=== PATIENT | female | born 1940 | race Two or more races ===

== ENCOUNTER 2020-12-27 10:34 | Outpatient (CLI) | payer MEDICARE, MEDICAID ==
[2020-12-27] MEDS ORDERED: SUVO10TA PO (11:32)
[2020-12-27] MEDS ORDERED: MULT-449 PO (11:32)
[2020-12-27] MEDS ORDERED: METF850T10 PO (11:32)
[2020-12-27] MEDS ORDERED: LISI-170 PO (11:32)
[2020-12-27 11:53] LABS: BASOPHILS % (AUTO) 1 % (0-1); EOSINOPHILS % (AUTO) 4 % (1-7); LYMPHOCYTES % (AUTO) 18 % (22-44); MEAN CORPUSCULAR HEMOGLOBIN 30.2 pg (27.0-34.8); MEAN CORPUSCULAR HGB CONC 34.5 g/dL (32.4-35.8); MEAN PLATELET VOLUME 7.3 fL (7.4-10.4); MONOCYTES % (AUTO) 9 % (2-9); NEUTROPHILS % (AUTO) 69 % (42-75); PLATELET COUNT 294 x10^3/uL (130-400); RED BLOOD COUNT 4.04 x10^6/uL (3.82-5.3)
[2020-12-27 12:02] LABS: ALBUMIN 4.2 g/dL (3.4-5.0); ANION GAP 8 mmol/L (5-15); CALCIUM 9.2 mg/dL (8.5-10.1); CHLORIDE 95 mmol/L (98-107)
[2020-12-27 12:03] LABS: INTERNATIONAL NORMALIZED RATIO 1.04 (0.93-1.1); PROTHROMBIN TIME 11.1 Seconds (9.6-11.5)
[2020-12-27 12:07] LABS: ALANINE AMINOTRANSFERASE 20 U/L (12-78); ALKALINE PHOSPHATASE 68 U/L (45-117); BILIRUBIN,TOTAL 0.3 mg/dL (0.2-1.0); CREATININE 0.73 mg/dL (0.55-1.02)
[2021-01-30] MEDS ORDERED: OXYC1TAB14 PO (22:43)
[2021-01-30] MEDS ORDERED: GABA600T7 PO (22:53)
== END 2020-12-27 23:59 | disposition home or self-care (01) ==
LOC: STAR 10:34 → MERGE 10:34 → STAR 23:59
PROVIDERS: ATTEND Orthopaedic Surgery
DX: Z01.818 Encounter for other preprocedural examination (principal); R94.31 Abnormal electrocardiogram [ECG] [EKG]
CPT/HCPCS: 36415; 80053; 85025; 85610; 85730; 93005

== ENCOUNTER 2021-01-05 09:14 | Day surgery (SDC) | payer MEDICARE, MEDICAID ==
[2021-01-02 12:37] LABS: ANION GAP 9 mmol/L (5-15); CALCIUM 9.5 mg/dL (8.5-10.1); CHLORIDE 95 mmol/L (98-107); CREATININE 0.67 mg/dL (0.55-1.02)
[~2021-01-05] VITALS: Ht 149.9 cm; Wt 54.3 kg
[~2021-01-05 09:14] MED LIST: LISI-170 PO; METF850T10 PO; MULT-449 PO; SUVO10TA PO
[2021-01-05 09:54] VITALS: BP 193/74
[2021-01-05] MEDS ORDERED: LACTATED RINGERS 1,000 ML IV SCH (10:00)
[2021-01-05] MEDS ORDERED: CHLORHEXIDINE 15 ML UDC PO ONE (10:00)
[2021-01-05 10:40] LABS: ANION GAP 9 mmol/L (5-15); CHLORIDE 99 mmol/L (98-107); CREATININE 0.74 mg/dL (0.55-1.02)
[2021-01-05] MEDS ORDERED: PROPOFOL 10 MG/ML, 20ML ONE (13:58)
[2021-01-05] MEDS ORDERED: ROCURONIUM 10 MG/ML,10ML ONE (13:58)
[2021-01-05] MEDS ORDERED: DEXAMETHASONE 4 MG/ML, 1ML ONE (13:58)
[2021-01-05] MEDS ORDERED: CEFAZOLIN 1,000 MG ONE (13:58)
[2021-01-05] MEDS ORDERED: NEOSTIGMINE 1 MG/ML, 10ML ONE (13:58)
[2021-01-05] MEDS ORDERED: METOPROLOL 1 MG/ML, 5ML ONE (13:58)
[2021-01-05] MEDS ORDERED: ONDANSETRON 2MG/ML, 2ML ONE (13:58)
[2021-01-05] MEDS ORDERED: GLYCOPYRROLATE 0.2MG/1ML, 5ML ONE (13:58)
[2021-01-05] MEDS ORDERED: FENTANYL PF 250 MCG/5ML ONE (13:58)
[2021-01-05] MEDS ORDERED: LIDOCAINE 1%, 20ML INFIL ONE (14:32)
[2021-01-05] MEDS ORDERED: BUPIVACAINE/PF 0.5% INFIL ONE (14:33)
[2021-01-05] MEDS ORDERED: PROMETHAZINE 25 MG/ML, 1ML IV PRN (15:00)
[2021-01-05] MEDS ORDERED: OXYcodone 5 MG/5 ML ORAL.SOL UDC PO PRN (15:00)
[2021-01-05] MEDS ORDERED: ACETAMINOPHEN 325 MG TABLET PO PRN (15:00)
[2021-01-05] MEDS ORDERED: KETOROLAC 30 MG/1 ML IV PRN (15:00)
[2021-01-05] MEDS ORDERED: DIAZEPAM 5 MG/ML, 2ML IVPush PRN (15:00)
[2021-01-05] MEDS ORDERED: MEPERIDINE/PF 25MG/0.5ML IVPush PRN (15:00)
[2021-01-05] MEDS ORDERED: ALBUTEROL SULFATE 2.5 MG/3 ML NPPB PRN (15:00)
[2021-01-05] MEDS ORDERED: HYDROmorphone 2 MG/ML, 1ML IVPush PRN (15:00)
[2021-01-05] MEDS ORDERED: hydrALAzine 20 MG/ML, 1ML IV PRN (15:00)
[2021-01-05] MEDS ORDERED: LABETALOL 5MG/ML, 20ML IV PRN (15:00)
[2021-01-05] MEDS: FENTANYL PF 100 MCG/2ML IV PRN ×2 (15:38→15:43)
[2021-01-30] MEDS ORDERED: OXYC1TAB14 PO (22:43)
[2021-01-30] MEDS ORDERED: GABA600T7 PO (22:53)
== END 2021-01-05 18:00 | disposition home or self-care (01) ==
LOC: OUT 09:14 → MERGE 14:00 → OUT 18:00
PROVIDERS: ATTEND Surgery
DX: C43.72 Malignant melanoma of left lower limb, including hip (principal); C77.4 Secondary and unspecified malignant neoplasm of inguinal and lower limb lymph nodes; L97.429 Non-pressure chronic ulcer of left heel and midfoot with unspecified severity; E11.9 Type 2 diabetes mellitus without complications; I10 Essential (primary) hypertension; Z20.822 Contact with and (suspected) exposure to COVID-19; Z79.84 Long term (current) use of oral hypoglycemic drugs; Z79.899 Other long term (current) drug therapy; Z90.49 Acquired absence of other specified parts of digestive tract
CPT/HCPCS: 11626; 15275; 36415; 38531; 78195; 80048; 82962; 88307; A9541; C5275; J0171; J0330; J0690; J1100; J2405; J2704; J2710; J3010; J7120; Q4100; U0003; U0005

== ENCOUNTER 2021-02-09 14:02 | Outpatient (CLI) | payer MEDICARE, MEDICAID ==
[~2021-02-09 14:02] MED LIST changes: +CEPH500T PO; +DOXY100T PO; +GABA600T7 PO; +ONDA4TAB7 PO; +OXYC1TAB12 PO
[2021-04-04] MEDS ORDERED: TRAM50TA2 PO (12:42)
[2021-04-04] MEDS ORDERED: OMEP-110 PO (12:42)
== END 2021-02-09 23:59 | disposition home or self-care (01) ==
LOC: WOUND 14:02
PROVIDERS: ATTEND Internal Medicine
DX: T81.89XA Other complications of procedures, not elsewhere classified, initial encounter (principal); E11.621 Type 2 diabetes mellitus with foot ulcer; L97.521 Non-pressure chronic ulcer of other part of left foot limited to breakdown of skin; L03.116 Cellulitis of left lower limb; I10 Essential (primary) hypertension; Z85.820 Personal history of malignant melanoma of skin; Z90.49 Acquired absence of other specified parts of digestive tract; Z20.822 Contact with and (suspected) exposure to COVID-19; Z79.84 Long term (current) use of oral hypoglycemic drugs; Z79.899 Other long term (current) drug therapy; Y83.8 Other surgical procedures as the cause of abnormal reaction of the patient, or of later complication, without mention of misadventure at the time of the procedure; Y92.238 Other place in hospital as the place of occurrence of the external cause
CPT/HCPCS: 15275; 15276; G0463; Q4133

== ENCOUNTER 2021-02-16 10:49 | Outpatient (CLI) | payer MEDICARE, MEDICAID ==
[2021-04-04] MEDS ORDERED: OMEP-110 PO (12:42)
[2021-04-04] MEDS ORDERED: TRAM50TA2 PO (12:42)
== END 2021-02-16 23:59 | disposition home or self-care (01) ==
LOC: WOUND 10:49
PROVIDERS: ATTEND Internal Medicine
DX: T81.89XD Other complications of procedures, not elsewhere classified, subsequent encounter (principal); E11.621 Type 2 diabetes mellitus with foot ulcer; L97.522 Non-pressure chronic ulcer of other part of left foot with fat layer exposed; L97.422 Non-pressure chronic ulcer of left heel and midfoot with fat layer exposed; I10 Essential (primary) hypertension; Z85.820 Personal history of malignant melanoma of skin; Z90.49 Acquired absence of other specified parts of digestive tract; Z20.822 Contact with and (suspected) exposure to COVID-19; Z79.84 Long term (current) use of oral hypoglycemic drugs; Z79.899 Other long term (current) drug therapy; Y83.8 Other surgical procedures as the cause of abnormal reaction of the patient, or of later complication, without mention of misadventure at the time of the procedure
CPT/HCPCS: 15275; 15276; Q4133

== ENCOUNTER → 2021-02-23 | Outpatient (CLI) | payer MEDICARE, MEDICAID ==
[~2021-02-23] MED LIST changes: -OXYC1TAB12 PO; +OXYC1TAB14 PO
== END | disposition home or self-care (01) ==
LOC: WOUND 09:17
PROVIDERS: ATTEND Internal Medicine
DX: T81.89XD Other complications of procedures, not elsewhere classified, subsequent encounter (principal); L03.116 Cellulitis of left lower limb; E11.628 Type 2 diabetes mellitus with other skin complications; I10 Essential (primary) hypertension; Z85.820 Personal history of malignant melanoma of skin; Z90.49 Acquired absence of other specified parts of digestive tract; Z20.822 Contact with and (suspected) exposure to COVID-19; Z79.84 Long term (current) use of oral hypoglycemic drugs; Z79.899 Other long term (current) drug therapy; Y83.8 Other surgical procedures as the cause of abnormal reaction of the patient, or of later complication, without mention of misadventure at the time of the procedure
CPT/HCPCS: 15275; 15276; Q4133

== ENCOUNTER 2021-03-02 08:06 | Outpatient (CLI) | payer MEDICARE, MEDICAID ==
[~2021-03-02 08:06] MED LIST changes: +OXYC1TAB12 PO; -OXYC1TAB14 PO
[2021-04-04] MEDS ORDERED: OMEP-110 PO (12:42)
[2021-04-04] MEDS ORDERED: TRAM50TA2 PO (12:42)
== END 2021-03-02 23:59 | disposition home or self-care (01) ==
LOC: WOUND 08:06
PROVIDERS: ATTEND Internal Medicine
DX: T81.89XD Other complications of procedures, not elsewhere classified, subsequent encounter (principal); E11.621 Type 2 diabetes mellitus with foot ulcer; L97.522 Non-pressure chronic ulcer of other part of left foot with fat layer exposed; L97.422 Non-pressure chronic ulcer of left heel and midfoot with fat layer exposed; I10 Essential (primary) hypertension; Z85.820 Personal history of malignant melanoma of skin; Z90.49 Acquired absence of other specified parts of digestive tract; Z20.822 Contact with and (suspected) exposure to COVID-19; Z85.828 Personal history of other malignant neoplasm of skin; Z79.84 Long term (current) use of oral hypoglycemic drugs; Z79.899 Other long term (current) drug therapy; Y83.8 Other surgical procedures as the cause of abnormal reaction of the patient, or of later complication, without mention of misadventure at the time of the procedure
CPT/HCPCS: 15275; 15276; Q4133

== ENCOUNTER 2021-03-07 17:19 | Inpatient (IN) | payer MEDICARE, MEDICAID ==
[~2021-03-07] VITALS: Ht 149.9 cm; Wt 58.8 kg
[~2021-03-07 17:19] MED LIST changes: -OXYC1TAB12 PO; +OXYC1TAB14 PO
--- NOTE | 2021-03-07 17:39 | NUR ---
PT brought in by family for chief complaint of left leg rash developed this am. 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
[2021-03-07] MEDS ORDERED: ACETAMINOPHEN 325 MG TABLET PO ONE (18:00)
[2021-03-07] MEDS ORDERED: VANCOMYCIN PER PHARMACY MC PRN (18:00)
[2021-03-07] MEDS ORDERED: SODIUM CHLORIDE FLUSH 10ML SYR IVF ONE (18:00)
[2021-03-07] MEDS ORDERED: CEFTRIAXONE 1,000 MG in DEXTROSE 5% 50 ML IVPB ONE (18:00)
[2021-03-07] MEDS ORDERED: SODIUM CHLORIDE 0.9% 1,000ML IVBOLUS ONE (18:00)
[2021-03-07 18:23] LABS: MEAN CORPUSCULAR HEMOGLOBIN 28.8 pg (27.0-34.8); MEAN PLATELET VOLUME 7.3 fL (7.4-10.4); PLATELET COUNT 380 x10^3/uL (130-400); RED BLOOD COUNT 3.42 x10^6/uL (3.82-5.3); RED CELL DISTRIBUTION WIDTH 14.6 % (9.6-15.2)
[2021-03-07] MEDS ORDERED: VANCOMYCIN 1,300 MG in SODIUM CHLORIDE 0.9% 250 ML IV ONE (18:30)
[2021-03-07 18:33] LABS: ANION GAP 11 mmol/L (5-15); CALCIUM 8.7 mg/dL (8.5-10.1); CHLORIDE 93 mmol/L (98-107); CREATININE 0.77 mg/dL (0.55-1.02)
[2021-03-07 18:34] LABS: ALANINE AMINOTRANSFERASE 27 U/L (12-78); ALBUMIN 3.4 g/dL (3.4-5.0)
[2021-03-07 18:36] LABS: ALKALINE PHOSPHATASE 61 U/L (45-117); BILIRUBIN,TOTAL 0.4 mg/dL (0.2-1.0); TOTAL PROTEIN 6.9 g/dL (6.4-8.2)
[2021-03-07] MEDS ORDERED: ACETAMINOPHEN 325 MG TABLET ONE (18:36)
--- NOTE | 2021-03-07 18:41 | NUR ---
pt medicated per emar. vss. evann.
[2021-03-07 18:45] LABS: MICROSCOPIC NOT IND
--- NOTE | 2021-03-07 18:54 | NUR ---
BEDSIDE REPORT RECEIVED FROM GAETANO LEYVA
[2021-03-07 19:11] LABS: BAND#(MANUAL) 0.26 x10^3/uL; BANDS%(MANUAL) 1 % (0-7); LYMPH#(MANUAL) 0.77 x10^3/uL (1-3.4); LYMPHS% (MANUAL) 3 % (22-44); MONOS#(MANUAL) 1.29 x10^3/uL (0.3-2.7); MONOS% (MANUAL) 5 % (2-9); SEG#(MANUAL) 23.39 x10^3/uL (1.8-6.8); SEGS% (MANUAL) 91 % (42-75)
[2021-03-07 19:12] LABS: <PLATELET ESTIMATE> ADEQUATE; <PLT MORPHOLOGY> NORMAL PLT MORPH; OVALOCYTES 1+; PMNS WITH VACUOLES 1+
[2021-03-07] MEDS: SODIUM CHLORIDE 0.9% 1,000 ML IV SCH ×2 (19:19→20:19)
[2021-03-07] MEDS ORDERED: morphine SULFATE 10 MG/ML, 1ML IVPush PRN (20:00)
[2021-03-07] MEDS ORDERED: ACETAMINOPHEN 325 MG TABLET PO PRN (20:00)
--- NOTE | 2021-03-07 20:26 | NUR ---
REPORT TO [facility] ALL QUESTIONS ADDRESSED PT READY FOR TRANSPORT TO ROOM AT THIS TIME.
[2021-03-07 20:49] VITALS: BP 124/72
[2021-03-07] MEDS: ENOXAPARIN 40 MG/0.4 ML SQ SCH (23:17)
[2021-03-07] MEDS: LACTATED RINGERS 1,000 ML IV SCH (23:17)
[2021-03-07] MEDS: KETOROLAC 30 MG/1 ML IV PRN (23:33)
[2021-03-08 00:42] VITALS: BP 148/70
[2021-03-08] MEDS: CEFAZOLIN 2,000 MG in SODIUM CHLORIDE 0.9% 50 ML IV SCH ×3 (06:20→21:56)
[2021-03-08 06:22] LABS: BASOPHILS % (AUTO) 1 % (0-1); EOSINOPHILS % (AUTO) 1 % (1-7); LYMPHOCYTES % (AUTO) 6 % (22-44); MEAN CORPUSCULAR HEMOGLOBIN 29.1 pg (27.0-34.8); MEAN CORPUSCULAR HGB CONC 33.6 g/dL (32.4-35.8); MEAN PLATELET VOLUME 7.8 fL (7.4-10.4); MONOCYTES % (AUTO) 9 % (2-9); NEUTROPHILS % (AUTO) 84 % (42-75); PLATELET COUNT 332 x10^3/uL (130-400); RED BLOOD COUNT 2.99 x10^6/uL (3.82-5.3); RED CELL DISTRIBUTION WIDTH 14.8 % (9.6-15.2)
[2021-03-08 06:24] LABS: CHLORIDE 102 mmol/L (98-107)
[2021-03-08 06:39] LABS: ANION GAP 12 mmol/L (5-15); CALCIUM 8.5 mg/dL (8.5-10.1); CREATININE 0.54 mg/dL (0.55-1.02)
[2021-03-08 07:54] VITALS: BP 166/77
[2021-03-08] MEDS: LACTATED RINGERS 1,000 ML IV SCH (08:15)
[2021-03-08] MEDS: KETOROLAC 30 MG/1 ML IV PRN ×2 (15:28→23:04)
[2021-03-08 19:35] VITALS: BP 177/74
[2021-03-08 20:18] VITALS: BP_SYST 172; BP_SYST 176; BP_SYST 198; BP_DIAS 102; BP_DIAS 79; BP_DIAS 83
[2021-03-08 20:45] VITALS: BP 171/80
[2021-03-08] MEDS: LISINOPRIL 20 MG TABLET PO SCH (20:51)
[2021-03-08] MEDS: ENOXAPARIN 40 MG/0.4 ML SQ SCH (20:52)
[2021-03-08 22:03] VITALS: BP 154/81
[2021-03-08] MEDS: MELATONIN 5 MG TABLET PO PRN (23:04)
[2021-03-09 00:57] VITALS: BP 176/73
[2021-03-09 01:42] VITALS: BP 176/77
[2021-03-09 06:04] LABS: BASOPHILS % (AUTO) 1 % (0-1); EOSINOPHILS % (AUTO) 1 % (1-7); LYMPHOCYTES % (AUTO) 12 % (22-44); MEAN CORPUSCULAR HEMOGLOBIN 28.9 pg (27.0-34.8); MEAN CORPUSCULAR HGB CONC 33.7 g/dL (32.4-35.8); MEAN PLATELET VOLUME 7.9 fL (7.4-10.4); MONOCYTES % (AUTO) 12 % (2-9); NEUTROPHILS % (AUTO) 73 % (42-75); PLATELET COUNT 353 x10^3/uL (130-400); RED BLOOD COUNT 3.12 x10^6/uL (3.82-5.3); RED CELL DISTRIBUTION WIDTH 14.4 % (9.6-15.2)
[2021-03-09 06:11] LABS: ANION GAP 8 mmol/L (5-15); CHLORIDE 102 mmol/L (98-107)
[2021-03-09 06:12] LABS: CREATININE 0.65 mg/dL (0.55-1.02)
[2021-03-09] MEDS: CEFAZOLIN 2,000 MG in SODIUM CHLORIDE 0.9% 50 ML IV SCH (06:12)
[2021-03-09 06:30] VITALS: BP_SYST 185; BP_SYST 187; BP_DIAS 69; BP_DIAS 72
[2021-03-09] MEDS: hydrALAzine 20 MG/ML, 1ML IV PRN (06:38)
[2021-03-09] MEDS ORDERED: POTASSIUM CHLORIDE 20 MEQ TAB.ER.PRT PO ONE (07:00)
[2021-03-09] MEDS: LISINOPRIL 20 MG TABLET PO SCH (08:07)
[2021-03-09] MEDS: KETOROLAC 30 MG/1 ML IV PRN (11:33)
[2021-03-09 13:58] VITALS: BP 136/84
[2021-03-09] MEDS: DAPTOMYCIN 250 MG in SODIUM CHLORIDE 0.9% 100 ML IV SCH (16:25)
[2021-03-09] MEDS ORDERED: CEFAZOLIN 2,000 MG in SODIUM CHLORIDE 0.9% 50 ML IV SCH (18:00)
[2021-03-09 19:37] VITALS: BP 148/74
[2021-03-09] MEDS: MELATONIN 5 MG TABLET PO PRN (22:44)
[2021-03-09] MEDS: ENOXAPARIN 40 MG/0.4 ML SQ SCH (22:44)
[2021-03-10 00:18] VITALS: BP 175/73
[2021-03-10 05:25] LABS: BASOPHILS % (AUTO) 1 % (0-1); EOSINOPHILS % (AUTO) 3 % (1-7); LYMPHOCYTES % (AUTO) 19 % (22-44); MEAN CORPUSCULAR HEMOGLOBIN 28.8 pg (27.0-34.8); MEAN CORPUSCULAR HGB CONC 33.5 g/dL (32.4-35.8); MEAN PLATELET VOLUME 7.6 fL (7.4-10.4); MONOCYTES % (AUTO) 13 % (2-9); NEUTROPHILS % (AUTO) 64 % (42-75); PLATELET COUNT 366 x10^3/uL (130-400); RED BLOOD COUNT 3.13 x10^6/uL (3.82-5.3); RED CELL DISTRIBUTION WIDTH 14.6 % (9.6-15.2)
[2021-03-10 05:37] LABS: ANION GAP 8 mmol/L (5-15); CALCIUM 8.5 mg/dL (8.5-10.1); CHLORIDE 104 mmol/L (98-107); CREATININE 0.61 mg/dL (0.55-1.02)
[2021-03-10 06:31] VITALS: BP 165/88
[2021-03-10] MEDS: LISINOPRIL 20 MG TABLET PO SCH (09:46)
[2021-03-10] MEDS ORDERED: ZOLPIDEM 5MG TABLET PO PRN (10:00)
[2021-03-10] MEDS: MULTIVITAMIN 1 TABLET PO SCH (10:32)
[2021-03-10] MEDS ORDERED: morphine SULFATE 10 MG/ML, 1ML IVPush PRN (11:00)
[2021-03-10 12:14] VITALS: BP 165/76
[2021-03-10] MEDS: DAPTOMYCIN 250 MG in SODIUM CHLORIDE 0.9% 100 ML IV SCH (15:35)
[2021-03-10 20:18] VITALS: BP 178/78
[2021-03-10] MEDS: ENOXAPARIN 40 MG/0.4 ML SQ SCH (20:56)
[2021-03-10] MEDS: GABAPENTIN 300 MG CAPSULE PO SCH (20:56)
[2021-03-10] MEDS: MELATONIN 5 MG TABLET PO PRN (20:57)
[2021-03-11 04:10] VITALS: BP 175/75
[2021-03-11 05:26] LABS: BASOPHILS % (AUTO) 1 % (0-1); EOSINOPHILS % (AUTO) 4 % (1-7); LYMPHOCYTES % (AUTO) 22 % (22-44); MEAN CORPUSCULAR HEMOGLOBIN 29.6 pg (27.0-34.8); MEAN CORPUSCULAR HGB CONC 34.6 g/dL (32.4-35.8); MEAN PLATELET VOLUME 7.2 fL (7.4-10.4); MONOCYTES % (AUTO) 15 % (2-9); NEUTROPHILS % (AUTO) 59 % (42-75); PLATELET COUNT 372 x10^3/uL (130-400); RED BLOOD COUNT 3.07 x10^6/uL (3.82-5.3); RED CELL DISTRIBUTION WIDTH 14.7 % (9.6-15.2)
[2021-03-11 05:30] LABS: CHLORIDE 102 mmol/L (98-107)
[2021-03-11 05:38] LABS: ANION GAP 8 mmol/L (5-15); CALCIUM 8.5 mg/dL (8.5-10.1); CREATININE 0.65 mg/dL (0.55-1.02)
[2021-03-11 06:26] VITALS: BP 167/82
[2021-03-11] MEDS ORDERED: ACETAMINOPHEN 325 MG TABLET PO PRN (07:30)
[2021-03-11] MEDS: MULTIVITAMIN 1 TABLET PO SCH (07:46)
[2021-03-11] MEDS: LISINOPRIL 20 MG TABLET PO SCH (07:46)
[2021-03-11] MEDS: CARVEDILOL 6.25 MG TABLET PO SCH ×2 (07:46→17:07)
[2021-03-11 12:24] VITALS: BP 173/75
[2021-03-11] MEDS: INSULIN LISPRO 100 UNITS/ML, PEN SQ-INSULIN SCH ×3 (12:50→20:19)
[2021-03-11] MEDS: DAPTOMYCIN 250 MG in SODIUM CHLORIDE 0.9% 100 ML IV SCH (15:52)
[2021-03-11 17:04] VITALS: BP 168/85
[2021-03-11] MEDS: metFORMIN 850 MG TABLET PO SCH (17:06)
[2021-03-11 19:39] VITALS: BP 174/76
[2021-03-11] MEDS: GABAPENTIN 300 MG CAPSULE PO SCH (20:18)
[2021-03-11] MEDS: ENOXAPARIN 40 MG/0.4 ML SQ SCH (20:19)
[2021-03-11] MEDS: hydrALAzine 20 MG/ML, 1ML IV PRN (20:24)
[2021-03-11] MEDS ORDERED: BELSOMRA 10 MG HOMEMEDPO SCH (21:00)
[2021-03-11 23:11] VITALS: BP 123/68
[2021-03-12 02:23] VITALS: BP 134/69
[2021-03-12 04:50] LABS: ANION GAP 8 mmol/L (5-15); CALCIUM 8.3 mg/dL (8.5-10.1); CHLORIDE 100 mmol/L (98-107)
[2021-03-12 04:51] LABS: % IRON SATURATION 12 % (20-55); CREATININE 0.65 mg/dL (0.55-1.02); IRON LEVEL 43 mcg/dL (50-170); TOTAL IRON BINDING CAPACITY 349 mcg/dL (250-450)
[2021-03-12 05:28] VITALS: BP 154/72
[2021-03-12] MEDS: CARVEDILOL 6.25 MG TABLET PO SCH (05:29)
[2021-03-12] MEDS ORDERED: FERROUS SULFATE 325 MG TABLET PO SCH (07:30)
[2021-03-12 08:10] VITALS: BP 129/69
[2021-03-12] MEDS: INSULIN LISPRO 100 UNITS/ML, PEN SQ-INSULIN SCH ×2 (08:23→12:32)
[2021-03-12] MEDS: metFORMIN 850 MG TABLET PO SCH (08:23)
[2021-03-12] MEDS: LISINOPRIL 20 MG TABLET PO SCH (08:24)
[2021-03-12] MEDS: MULTIVITAMIN 1 TABLET PO SCH (08:27)
[2021-03-12] MEDS: KETOROLAC 30 MG/1 ML IV PRN (10:23)
[2021-03-12] MEDS ORDERED: INSU100I11 SQ-INSULIN (12:28)
[2021-03-12] MEDS ORDERED: CARV6.2512 PO (12:28)
[2021-03-12] MEDS ORDERED: FERR-36 PO (12:28)
[2021-03-12] MEDS ORDERED: LINE600T12 PO (12:32)
[2021-03-12 13:38] VITALS: BP 160/79
[2021-03-12] MEDS ORDERED: CARVEDILOL 6.25 MG TABLET PO SCH (18:00)
== END 2021-03-12 17:44 | disposition home health service (06) | DRG 872 ==
LOC: ED 19:30 → EDIP 20:11 → 3N 20:37
PROVIDERS: ADMIT Student in an Organized Health Care Education/Training Program; ATTEND Internal Medicine
PROC: 0T9B70Z Drainage of Bladder with Drainage Device, Via Natural or Artificial Opening (ICD-10-PCS; principal; 2021-03-07)
DX: A41.9 Sepsis, unspecified organism (principal); L03.116 Cellulitis of left lower limb; E87.1 Hypo-osmolality and hyponatremia; D50.9 Iron deficiency anemia, unspecified; E11.65 Type 2 diabetes mellitus with hyperglycemia; G47.00 Insomnia, unspecified; I10 Essential (primary) hypertension; R65.20 Severe sepsis without septic shock; Z85.820 Personal history of malignant melanoma of skin; B95.8 Unspecified staphylococcus as the cause of diseases classified elsewhere; B95.2 Enterococcus as the cause of diseases classified elsewhere
CPT/HCPCS: 36415; 71045; 80048; 80053; 81003; 82962; 83036; 83540; 83550; 83605; 84145; 85025; 87040; 87070; 87077; 87186; 87205; 96365; 96375; G0378; J0690; J0696; J0878; J1650; J1885; J3370; J0360; J1815; J2270; J7030; J7050; J7120

== ENCOUNTER 2021-03-23 09:31 | Outpatient (CLI) | payer MEDICARE, MEDICAID ==
[~2021-03-23 09:31] MED LIST changes: +CARV6.2512 PO; +FERR-36 PO; +INSU100I11 SQ-INSULIN; +LINE600T12 PO; +OXYC1TAB12 PO; -OXYC1TAB14 PO
[2021-04-04] MEDS ORDERED: OMEP-110 PO (12:42)
[2021-04-04] MEDS ORDERED: TRAM50TA2 PO (12:42)
== END 2021-03-23 23:59 | disposition home or self-care (01) ==
LOC: WOUND 09:31
PROVIDERS: ATTEND Internal Medicine
DX: E11.621 Type 2 diabetes mellitus with foot ulcer (principal); L97.422 Non-pressure chronic ulcer of left heel and midfoot with fat layer exposed; L97.521 Non-pressure chronic ulcer of other part of left foot limited to breakdown of skin; I10 Essential (primary) hypertension; Z85.820 Personal history of malignant melanoma of skin; Z90.49 Acquired absence of other specified parts of digestive tract; Z20.822 Contact with and (suspected) exposure to COVID-19; Z79.84 Long term (current) use of oral hypoglycemic drugs; Z79.899 Other long term (current) drug therapy
CPT/HCPCS: 15275; Q4133

== ENCOUNTER 2021-03-30 09:41 | Outpatient (CLI) | payer MEDICARE, MEDICAID ==
[2021-04-04] MEDS ORDERED: OMEP-110 PO (12:42)
[2021-04-04] MEDS ORDERED: TRAM50TA2 PO (12:42)
== END 2021-03-30 23:59 | disposition home or self-care (01) ==
LOC: WOUND 09:41
PROVIDERS: ATTEND Internal Medicine
DX: E11.621 Type 2 diabetes mellitus with foot ulcer (principal); L97.422 Non-pressure chronic ulcer of left heel and midfoot with fat layer exposed; L97.521 Non-pressure chronic ulcer of other part of left foot limited to breakdown of skin; I10 Essential (primary) hypertension; Z85.820 Personal history of malignant melanoma of skin; Z90.49 Acquired absence of other specified parts of digestive tract; Z20.822 Contact with and (suspected) exposure to COVID-19; Z79.84 Long term (current) use of oral hypoglycemic drugs; Z79.899 Other long term (current) drug therapy
CPT/HCPCS: 15275; Q4133

== ENCOUNTER 2021-04-06 09:27 | Outpatient (CLI) | payer MEDICARE, MEDICAID ==
[~2021-04-06 09:27] MED LIST changes: +OMEP-110 PO; +TRAM50TA2 PO
== END 2021-04-06 23:59 | disposition home or self-care (01) ==
LOC: WOUND 09:27
PROVIDERS: ATTEND Internal Medicine
DX: E11.621 Type 2 diabetes mellitus with foot ulcer (principal); L97.422 Non-pressure chronic ulcer of left heel and midfoot with fat layer exposed; L97.522 Non-pressure chronic ulcer of other part of left foot with fat layer exposed; I10 Essential (primary) hypertension; Z85.820 Personal history of malignant melanoma of skin; Z90.49 Acquired absence of other specified parts of digestive tract; Z20.822 Contact with and (suspected) exposure to COVID-19; Z79.84 Long term (current) use of oral hypoglycemic drugs; Z79.899 Other long term (current) drug therapy
CPT/HCPCS: 15275; Q4133

== ENCOUNTER 2021-04-13 13:14 | Outpatient (CLI) | payer MEDICARE, MEDICAID | END 2021-04-13 23:59 | disposition home or self-care (01) | LOC: WOUND 13:14 | PROVIDERS: ATTEND Internal Medicine | DX: E11.621 Type 2 diabetes mellitus with foot ulcer (principal); L97.521 Non-pressure chronic ulcer of other part of left foot limited to breakdown of skin; L97.422 Non-pressure chronic ulcer of left heel and midfoot with fat layer exposed; I10 Essential (primary) hypertension; Z85.820 Personal history of malignant melanoma of skin; Z90.49 Acquired absence of other specified parts of digestive tract; Z20.822 Contact with and (suspected) exposure to COVID-19; Z79.84 Long term (current) use of oral hypoglycemic drugs; Z79.899 Other long term (current) drug therapy | CPT/HCPCS: 97597 ==

== ENCOUNTER 2021-04-20 13:40 | Outpatient (CLI) | payer MEDICARE, MEDICAID | END 2021-04-20 23:59 | disposition home or self-care (01) | LOC: WOUND 13:40 | PROVIDERS: ATTEND Internal Medicine | DX: T81.89XA Other complications of procedures, not elsewhere classified, initial encounter (principal); E11.621 Type 2 diabetes mellitus with foot ulcer; L97.521 Non-pressure chronic ulcer of other part of left foot limited to breakdown of skin; L97.422 Non-pressure chronic ulcer of left heel and midfoot with fat layer exposed; I10 Essential (primary) hypertension; Z85.820 Personal history of malignant melanoma of skin; Z90.49 Acquired absence of other specified parts of digestive tract; Z20.822 Contact with and (suspected) exposure to COVID-19; Z79.84 Long term (current) use of oral hypoglycemic drugs; Z79.899 Other long term (current) drug therapy; Y83.8 Other surgical procedures as the cause of abnormal reaction of the patient, or of later complication, without mention of misadventure at the time of the procedure; Y92.238 Other place in hospital as the place of occurrence of the external cause | CPT/HCPCS: 11104; 15275; Q4133 ==

== ENCOUNTER 2021-04-27 13:23 | Outpatient (CLI) | payer MEDICARE, MEDICAID | END 2021-04-27 21:00 | disposition home or self-care (01) | LOC: WOUND 13:23 | PROVIDERS: ATTEND Internal Medicine | DX: T81.89XD Other complications of procedures, not elsewhere classified, subsequent encounter (principal); E11.621 Type 2 diabetes mellitus with foot ulcer; L97.522 Non-pressure chronic ulcer of other part of left foot with fat layer exposed; L97.422 Non-pressure chronic ulcer of left heel and midfoot with fat layer exposed; C43.72 Malignant melanoma of left lower limb, including hip; I10 Essential (primary) hypertension; G47.00 Insomnia, unspecified; Z79.84 Long term (current) use of oral hypoglycemic drugs; Z79.899 Other long term (current) drug therapy; Z90.49 Acquired absence of other specified parts of digestive tract; Y83.8 Other surgical procedures as the cause of abnormal reaction of the patient, or of later complication, without mention of misadventure at the time of the procedure | CPT/HCPCS: 15275; Q4133 ==